=== PATIENT | male | born 1960 | race Hispanic/Latino ===

== ENCOUNTER 2017-02-28 08:50 | Outpatient (CLI) | payer OTHER, SELFPAY | END 2017-02-28 08:51 | disposition home or self-care (01) | LOC: BICULT 08:50 | PROVIDERS: ATTEND Nurse Practitioner Family | DX: R22.32 Localized swelling, mass and lump, left upper limb (principal) | CPT/HCPCS: 76999 ==

== ENCOUNTER 2017-04-10 08:42 | Outpatient (CLI) | payer OTHER | END 2017-04-10 08:43 | disposition home or self-care (01) | LOC: BICMRI 08:42 | PROVIDERS: ATTEND Nurse Practitioner Family | DX: R22.32 Localized swelling, mass and lump, left upper limb (principal) ==

== ENCOUNTER 2019-08-09 10:51 | Outpatient (CLI) | payer OTHER ==
--- NOTE | 2019-08-09 13:36 | ULT ---
LEFT LOWER EXTREMITY DOPPLER VENOUS ULTRASOUND PROVIDED CLINICAL HISTORY: Left lower extremity edema TECHNIQUE: Grayscale and color Doppler sonography with spectral analysis was performed of the left common femora l, femoral, popliteal, posterior tibial, greater saphenous and profunda femoral veins. FINDINGS: There is normal compression, flow and augmentation seen within the deep venous structures o f the left lower extremity. There is a mildly prominent left inguinal lymph node measuring 2.7 x 1.5 cm. There is a complex nonvascular masslike lesion seen subjacent to the medial gastrocnemius titi suring 11.4 x 2.5 cm. IMPRESSION: No sonographic evidence for left lower extremity deep venous thrombosis. Nonspecific mildly prominent left inguinal lymph node. Complex nonvascular masslike lesion subjacent to the medial gastrocnemius is suspicious for a dissect ing Foote's cyst. Communication within the posterior aspect of the knee joint cannot be documented on the current examination. Would recommend correlation with the clinical examination. Complex cystic mass lesion within this location cannot be entirely excluded. Limited MR examination of the right foreleg may be helpful to document communication within the posterior medial aspect of the knee joint .
== END 2019-08-09 10:52 | disposition home or self-care (01) ==
LOC: BICULT 10:51
PROVIDERS: ATTEND Orthopaedic Surgery
DX: M79.89 Other specified soft tissue disorders (principal); M62.89 Other specified disorders of muscle